=== PATIENT | male | born 1945 | race Hispanic/Latino ===

== ENCOUNTER 2016-09-10 07:02 | Day surgery (SDC) | payer MEDICARE ==
[2016-09-01 13:27] VITALS: BMI 25.7
[2016-09-10] MEDS ORDERED: Lidocaine 1% Inj (20ml) ONE (08:25)
[2016-09-10] MEDS ORDERED: Propofol 10 mg/ml Inj (20 ML) ONE (08:25)
[2016-09-10] MEDS ORDERED: Lactated Ringer's 1,000 ML IV SCH (09:00)
[2016-09-10 09:27] VITALS: O2SAT 97
[2016-09-10 09:46] VITALS: BP 151/77; PULSE 90; RESP 16; TEMP 98.3
== END 2016-09-10 10:04 | disposition home or self-care (01) ==
LOC: ENDO 07:02
PROVIDERS: ATTEND Specialist
DX: D12.3 Benign neoplasm of transverse colon (principal); D12.4 Benign neoplasm of descending colon; K64.8 Other hemorrhoids; Z12.11 Encounter for screening for malignant neoplasm of colon; Z80.0 Family history of malignant neoplasm of digestive organs; E11.9 Type 2 diabetes mellitus without complications; I10 Essential (primary) hypertension; Z86.73 Personal history of transient ischemic attack (TIA), and cerebral infarction without residual deficits; N40.0 Benign prostatic hyperplasia without lower urinary tract symptoms; M19.90 Unspecified osteoarthritis, unspecified site; F41.0 Panic disorder [episodic paroxysmal anxiety]; Z90.49 Acquired absence of other specified parts of digestive tract
CPT/HCPCS: 45380; 45385; 82948; 88305; J2704; J7120

== ENCOUNTER 2018-06-23 07:09 | Outpatient (CLI) | payer MEDICARE, OTHER | END 2018-06-23 07:10 | disposition home or self-care (01) | LOC: PAT 07:09 ==

== ENCOUNTER 2018-07-19 07:01 | Day surgery (SDC) | payer MEDICARE, OTHER ==
[2018-07-19] MEDS ORDERED: cefTRIAXone 1 GM in NS 100 ML BAG IVPB ONE (10:02)
[2018-07-19] MEDS ORDERED: Iohexol 240 (50 ml) ONE (10:02)
[2018-07-19] MEDS ORDERED: cefTRIAXone (Rocephin) 1 gm Inj ONE (10:02)
[2018-07-19] MEDS ORDERED: Bacitracin Ointment 30 GM TUBE ONE (12:02)
[2018-07-19] MEDS ORDERED: HYDROmorphone 0.5 mg/0.5 ml ISec IVP PRN (12:25)
[2018-07-19] MEDS ORDERED: HYDROmorphone 0.5 mg/0.5 ml ISec IVP ONE ×5 (12:25→13:10)
[2018-07-19] MEDS ORDERED: Lactated Ringer's 1,000 ML IV SCH (12:30)
[2018-07-19] MEDS ORDERED: HYDROmorphone 0.5 mg/0.5 ml ISec ONE ×4 (12:33→13:12)
[2018-07-19 14:48] VITALS: BMI 25.7
[2018-07-19] MEDS: Tmp-Smz 800 mg-160 mg DS Tab PO SCH (18:46)
--- NOTE | 2018-07-19 23:20 | OP ---
PROCEDURE DATE: 07/19/2018 PREOPERATIVE DIAGNOSES: Bladder outlet obstruction, benign prostatic hypertrophy. POSTOPERATIVE DIAGNOSES: Bladder outlet obstruction, benign prostatic hypertrophy. PROCEDURES: Cystoscopy, GreenLight laser vaporization of prostate. ATTENDING SURGEON: Yevgeniy Roberto MD ANESTHESIA: General. SPECIMENS: There were none. DRAINS: A 22-Chinese 3-way Booker catheter. COMPLICATIONS: There were none. OPERATIVE FINDINGS: After informed consent was obtained, the patient was taken to the operating room and placed on the operating table. Anesthesia was administered. The patient was then placed in the dorsal lithotomy position and prepped and draped in the usual sterile fashion. A 21-Chinese laser scope with a visualizing obturator was placed in the patient's urethra and advanced proximally under direct vision until the bladder was entered. An inspection of the bladder was then performed which revealed grade II to III trabeculation with multiple diverticula and cellules. Prostate was massively enlarged with a massive median lobe growing into the bladder overlying the trigone. Both lateral lobes were markedly enlarged and occlusive appearing. The prostate was about 5 cm in length. At this point, a GreenLight laser vaporization was undertaken. The GreenLight laser fiber was then passed and under direct vision first, the median lobe was vaporized down to the bladder neck region. Any bleeding points encountered were controlled using the cauterization feature on the laser. After the median lobe had been adequately vaporized, attention was turned towards the lateral lobes. The lateral lobes were then vaporized from the bladder neck position proximally to the level of the verumontanum distally. First, the right lobe was vaporized. The bulk of the tissue was able to be removed. Then, attention was turned to the left lobe. Given the size of the prostate, left lobe was vaporized. However, there was some remaining tissue present as the resection was taking a long time with a lot of irrigating fluid, and visualization was becoming difficult. At the end of the vaporization, the view from the verumontanum revealed an open channel. There was some nodular tissue which remained. The bladder was then inspected. There was large amount of debris which was able to be irrigated out of the bladder. Final inspection revealed good hemostasis. Any small bleeding points were controlled using the laser fiber. After the vaporization was complete, the scope was removed. A 22-Chinese 3-way Booker catheter was then passed and placed to continuous bladder irrigation which was draining clear. The patient was then returned to the supine position and taken to the recovery room awake in stable condition. Yevgeniy Roberto MD
--- NOTE | 2018-07-20 10:32 | CON ---
HISTORY OF PRESENT ILLNESS: The patient is a 72-year-old man with a past medical history of BPH with bladder outlet obstruction who presented for electively scheduled cystoscopy with GreenLight laser vaporization of the prostate. The patient tolerated the procedure well but postprocedure he was noted to have cloudy urine and, as such, was admitted to the general medical dickey for continued observation. This morning he feels well and denies fevers, chills, rigors, nausea, vomiting or flank pain and is voiding blood-tinged urine into his Booker catheter bag. A medical consultation was placed to help co-manage his medical conditions. PAST MEDICAL HISTORY: As per HPI, also hypertension, [id number] diabetes mellitus and anxiety disorder. PAST SURGICAL HISTORY: As per HPI, also prostate biopsy and right inguinal hernia repair. ALLERGIES: NKDA. MEDICATIONS: Telmisartan 80 mg p.o. daily, Metformin 500 mg p.o. b.i.d. and Xanax 0.25 mg p.o. b.i.d. p.r.n. anxiety. FAMILY HISTORY: Noncontributory. SOCIAL HISTORY: The patient reports social alcohol use but denies tobacco use or illicit drug abuse. REVIEW OF SYSTEMS: A 12-point review of systems is negative except as per HPI. PHYSICAL EXAMINATION: VITAL SIGNS: Temperature 98.2, pulse 91, blood pressure 150/90, respiratory rate 20, oxygen saturation 97% on room air. GENERAL: No apparent distress. HEENT: PERRL, EOMI. No scleral icterus. No conjunctival pallor. NECK: No JVD, no bruits. LUNGS: Clear to auscultation. CARDIOVASCULAR: Regular rate and rhythm. Normal S1 and S2. No murmurs, rubs or gallops. ABDOMEN: Normoactive bowel sounds, soft, nontender, nondistended. GENITOURINARY: Booker catheter in place draining blood-tinged urine. EXTREMITIES: No edema. NEUROLOGIC: Awake, alert and oriented x 3. No focal motor deficits. LABORATORY DATA: No new labs. ASSESSMENT: The patient is a 72-year-old man with a past medical history of BPH with bladder outlet obstruction who presented for electively scheduled cystoscopy with GreenLight laser vaporization of the prostate. PLAN: 1. BPH with bladder outlet obstruction s/p cystoscopy with GreenLight laser vaporization of the prostate. Continue with care as per Dr. Roberto. 2. Hypertension. Blood pressure satisfactory. He is on Telmisartan at home however this is not on formulary and he has been started on Losartan 50 mg p.o. daily and Amlodipine 10 mg p.o. daily. He will resume Telmisartan 80 mg p.o. daily upon discharge. 3. [id number] diabetes mellitus, well controlled, with most recent A1c of 6.2. The patient to resume Metformin 500 mg p.o. b.i.d. on discharge. 4. Anxiety disorder. Continue Xanax 0.25 mg p.o. b.i.d. p.r.n. anxiety. 5. Prophylaxis. GI prophylaxis not indicated as the patient is eating. DVT prophylaxis not indicated as the patient is ambulatory. CODE STATUS: Full code. Hira Delgado MD MTDD
[2018-07-20] MEDS: Tmp-Smz 800 mg-160 mg DS Tab PO SCH (11:25)
--- NOTE | 2018-07-20 12:57 | CP.PCM.APN ---
Subjective - Date & Time of Evaluation Date of Evaluation: 07/20/18 Time of Evaluation: 11:00 - Subjective Subjective: Pt seen and examined at bedside. In no acute distress. Pt wants to go home. Booker noted with hematuria, CBI in progress. Objective - Vital Signs/Intake and Output Vital Signs (last 24 hours): Temp Pulse Resp BP Pulse Ox 98.2 F 91 H 20 110/70 97 07/20/18 06:45 07/20/18 11:25 07/20/18 06:45 07/20/18 11:25 07/20/18 06:45 Intake and Output: 07/20/18 07/20/18 06:59 18:59 Output Total 1950 Balance -1950 - Medications Medications: Current Medications Alprazolam (Xanax) 0.25 mg PO Q12 [facility]; Protocol Stop: 07/26/18 22:01 Last Admin: 07/20/18 11:35 Dose: Not Given Amlodipine Besylate (Norvasc) 10 mg PO DAILY [facility] Last Admin: 07/20/18 11:24 Dose: 10 mg Diphenhydramine HCl (Benadryl) 25 mg PO HS PRN PRN Reason: Insomnia Last Admin: 07/19/18 21:23 Dose: 25 mg Losartan Potassium (Cozaar) 50 mg PO DAILY [facility] Last Admin: 07/20/18 11:25 Dose: 50 mg Metformin HCl (Glucophage) 1,000 mg PO BID [facility] Last Admin: 07/20/18 11:27 Dose: 1,000 mg Ondansetron HCl (Zofran Inj) 4 mg IVP ONCE PRN PRN Reason: Nausea/Vomiting Trimethoprim/Sulfamethoxazole (Bactrim Ds Tab) 1 tab PO BID [facility]; Protocol Last Admin: 07/20/18 11:25 Dose: 1 tab - Constitutional Appears: No Acute Distress - Respiratory Exam Respiratory Exam: Clear to Ausculation Bilateral, NORMAL BREATHING PATTERN - Cardiovascular Exam Cardiovascular Exam: REGULAR RHYTHM, +S1, +S2 - GI/Abdominal Exam GI & Abdominal Exam: Soft, Normal Bowel Sounds - Rectal Exam Rectal Exam: Deferred - Exam Additional comments: +hematuria - Neurological Exam Neurological Exam: Alert, Awake, Oriented x3 Assessment and Plan - Assessment and Plan (Free Text) Assessment: Pt is a 72 y.o. male who is s/p cysto, greenlight laser vaporization of prostate. Plan: On CBI - monitor urine output Meds per MAR Will continue to follow
[2018-07-20] MEDS ORDERED: cefTRIAXone 1 gm 1 GM/100 ML BAG IVPB STA (14:09)
[2018-07-20 14:54] VITALS: BP 160/90; PULSE 103; RESP 18; TEMP 98.7; O2SAT 100
--- NOTE | 2018-07-21 08:20 | PN ---
DATE: 07/20/2018 POSTOPERATIVE PROGRESS NOTE SUBJECTIVE: The patient is seen status post GreenLight laser vaporization. He was kept overnight for gross hematuria on bladder irrigation. The irrigation was turned off this morning. The urine is clear at this time. The patient wants to go home. He has been afebrile. His abdomen is soft, nontender, nondistended. There is no rebound or guarding. I flushed his Booker catheter copiously with sterile saline. There were no clots. It is currently draining very lightly tinged urine off the CBI, the catheter is draining well. I discussed with the patient that he can stay overnight if needed given the gross hematuria; however, the patient wants to go home. I will agree with discharging him now. He received intravenous antibiotics today, and I will start him tomorrow on oral antibiotics. He should follow up in the office on Thursday for Booker catheter removal. The patient can be discharged if medically cleared, but he is stable from my standpoint. Yevgeniy Roberto MD
== END 2018-07-20 17:38 | disposition home or self-care (01) ==
LOC: SDS 07:01 → 5RNO 17:59 → SDS 07-20 17:38
PROVIDERS: ATTEND Urology
DX: N40.1 Benign prostatic hyperplasia with lower urinary tract symptoms (principal); N13.8 Other obstructive and reflux uropathy; E11.9 Type 2 diabetes mellitus without complications; N32.0 Bladder-neck obstruction; I10 Essential (primary) hypertension; F41.9 Anxiety disorder, unspecified
CPT/HCPCS: 52648; 82948 ×2; J0696 ×2; J1170; J2405; J7120 ×2; Q9966